=== PATIENT | male | born 1955 | race Caucasian/White ===

== ENCOUNTER 2019-01-09 16:48 | Inpatient (IN) | payer MEDICARE ==
[~2019-01-09] VITALS: Ht 172.7 cm; Wt 110.3 kg
[2019-01-09] VITALS (194 sets, daily range): BP systolic 123; BP diastolic 72; PULSE 85; TEMP 97.6; O2SAT 80–100
[2019-01-09] MEDS ORDERED: ZOCOR 40MG40 MG PO (17:46)
[2019-01-09] MEDS ORDERED: LOTENSIN40 MG PO (17:46)
[2019-01-09] MEDS ORDERED: MIRAPEX 0.0.125 MG/T PO (17:47)
[2019-01-09] MEDS ORDERED: SINGULAIR 110 MG/TAB PO (17:47)
[2019-01-09] MEDS ORDERED: HYDRODIURIL50 MG PO (17:48)
[2019-01-09 17:50] LABS: INR 1.1 (0.8-3.0); PROTHROMBIN TIME 12.6 SECONDS (9.7-12.8)
[2019-01-09] MEDS ORDERED: MULTI VITAMINS1 TAB PO (17:56)
[2019-01-09] MEDS ORDERED: OMEGA-3 1000 MG1 CAP PO (17:57)
[2019-01-09] MEDS ORDERED: ASPIRIN 81M81 MG/TA2 PO (17:57)
[2019-01-09] MEDS ORDERED: PHARMASSURE ZIN50 MG PO (17:57)
[2019-01-09] MEDS ORDERED: GARLIC100 MG PO (17:57)
[2019-01-09 18:02] LABS: C-REACTIVE PROTEIN 5.8 mg/dL (0.0-0.9); MAGNESIUM 1.8 mg/dL (1.6-2.3)
[2019-01-09 19:51] LABS: ACETAMINOPHEN < 10 ug/mL (10-30)
--- NOTE | 2019-01-09 20:00 | NUR ---
Report received from Rian SOLITARIO in ED. Will call when room is ready.
[2019-01-09 20:01] LABS: BILIRUBIN,DIRECT 6.9 mg/dL (0.0-0.4); BILIRUBIN,TOTAL 9.2 mg/dL (0.0-1.0)
[2019-01-09 20:15] LABS: OSMOLALITY-SERUM 256 Osm/kg (275-300)
--- NOTE | 2019-01-09 20:35 | NUR ---
Pt arrived via wheelchair assisted by ED nurse and personal belongings. Pt has sweatpants under hospital gown at this time. Reports sleeping in sweatpants recently so agreed to allow pt to keep them on. Pt transfered and ambulated around room with no noted difficulties and with a steady gait although while pt was standing still pt was noted to have a slight hunch forward in posture.
[2019-01-09 21:21] LABS: TRICYCLIC ANTIDEPRESS URINE NEGATIVE
[2019-01-09 22:14] LABS: CALCIUM 8.8 mg/dL (8.4-10.2); CREATININE, serum 0.71 (0.66-1.25)
[2019-01-09 22:35] LABS: POTASSIUM 2.6 mmol/L (3.4-5.0)
[2019-01-09] MEDS ORDERED: ZYRTEC 10MG10 MG PO (23:59)
[2019-01-10] VITALS (1120 sets, daily range): BP systolic 104–125; BP diastolic 67–80; PULSE 66–86; TEMP 97.6–98.7; O2SAT 66–100
[2019-01-10] MEDS ORDERED: [UNRECOGNIZED DRUG - OTHER] PO (00:06)
--- NOTE | 2019-01-10 04:00 | NUR ---
Pt resting in between disturbances. Has been independent with standing at bedside for use of the urinal with no difficulties noted. Continues to be pleasant and cooperative with cares and conversation.
--- NOTE | 2019-01-10 07:00 | NUR ---
BEDSIDE REPORT RECEIVED FROM ALTAF RAMIREZ. PATIENT CURRENTLY SLEEPING
--- NOTE | 2019-01-10 07:25 | NUR ---
Report provided to Radhika SOLITARIO. Pt resting in bed with eyes closed at this time.
--- NOTE | 2019-01-10 07:27 | NUR ---
Pharmacy notified that pt has 5 home medication bottles ready for pepper picker in the ICU medication room. Pt has no family to take medications home.
[2019-01-10 07:57] LABS: BASO % 0.7 % (0.0-2.0); EOS % 0.7 % (0-4.0); GRAN # 1.7 (1.4-6.5); GRAN % 58.7 % (42.2-75.2); HEMATOCRIT 34.4 % (42.0-52.0); HEMOGLOBIN 12.5 g/dl (13.5-18.0); LYMPH # 0.6 (1.2-3.4); MEAN CELL VOLUME 98 fl (80.0-100.0); MEAN CORPUSCULAR HEMOGLOBIN 36 pg (27.0-31.0); MEAN CORPUSCULAR HGB CONC 36 g/dl (33.0-37.0); MEAN PLATELET VOLUME 10.9 fl (7.4-10.4); MONO # 0.5 (0.1-0.6); MONO % 18.6 % (1.7-9.3); PLATELET COUNT 118 K/mm3 (130-400); REDCELL DISTRIBUTION WIDTH-CV 13.2 % (11.5-14.5)
[2019-01-10 07:59] LABS: ALBUMIN 2.9 gm/dL (3.5-5.0); BILIRUBIN,TOTAL 7.8 mg/dL (0.0-1.0); CALCIUM 8.4 mg/dL (8.4-10.2); CREATININE, serum 0.69 (0.66-1.25); POTASSIUM 3.5 mmol/L (3.4-5.0); TOTAL PROTEIN 5.8 gm/dL (6.4-8.2)
--- NOTE | 2019-01-10 10:01 | NUR ---
Initial visit; Patient thanked Phlebotomy Technologist for looking in on him, offering to keep him in her prayers and listening. Phlebotomy Technologist will update his jew affiliation on Census per request.
--- NOTE | 2019-01-10 13:20 | NUR ---
SW and ZURDO student met with patient to discuss discharge planning. patient lives alone in [place]. He does not have much local support and says his brother and [place] [facility]. Patient reports he has depression and drinks around 3 beers a day due to the depression and a herniated disc. SW discussed patient going to [facility] for outpatient alcohol and MH treatment. He is agreeable for SW to make him an intake appointment. Patient does not have a DPOA but wanted to complete one. ZURDO and ZURDO student witnessed it and placed a copy in the chart. Patient given original and copies. He listed his brother and AFBIO. Patients PCP is Dr Mccrary and he obtains his medications from [facility]. ZURDO will make an appointment with [facility] and inform patient of time and date.
--- NOTE | 2019-01-10 14:00 | NUR ---
PATIENT EXPRESSES SEVERAL EMOTIONAL CONCERNS. WE TALK A LOT ABOUT UTILIZING COUNSELING SERVICES AFTER HE DISCHARGES. HE SEEMS VERY INTERESTED IN UTILIZING [facility] UPON DISCHARGE. EMOTIONAL SUPPORT GIVEN. WILL CONTINUE TO MONITOR.
--- NOTE | 2019-01-10 18:35 | NUR ---
PATIENT WILL TRANSFER TO ROOM 313
--- NOTE | 2019-01-10 19:25 | NUR ---
Patient taken to room 313, report given to Dejah prior to moving patient. Care turned over at this time.
--- NOTE | 2019-01-10 19:30 | NUR ---
Pt transferred from ICU up to room 313. Pt given call light, phone. Assessment completed- diminished lung sounds in bases, cough- tessalon perrles q6h. Denies pain. Abdominal sounds active all quadrants, pulses +3. Wounds to lateral feet- sees wound care, no dressings wearing socks. No further needs at this time.
[2019-01-11] VITALS (9 sets, daily range): BP systolic 108–133; BP diastolic 62–73; PULSE 66–73; TEMP 97.7–98.5
--- NOTE | 2019-01-11 | NUR ---
THIS NURSE RESUMED CARES AT THIS TIME. PT LAYING IN BED ASLEEP. NO ISSUES OR CONERNS NOTED AT THIS TIME
[2019-01-11 07:15] LABS: BASO % 0.9 % (0.0-2.0); EOS % 1.2 % (0-4.0); GRAN # 1.9 (1.4-6.5); GRAN % 55.4 % (42.2-75.2); HEMOGLOBIN 12.5 g/dl (13.5-18.0); LYMPH # 0.9 (1.2-3.4); MEAN CELL VOLUME 101 fl (80.0-100.0); MEAN CORPUSCULAR HEMOGLOBIN 35 pg (27.0-31.0); MEAN CORPUSCULAR HGB CONC 35 g/dl (33.0-37.0); MEAN PLATELET VOLUME 10.8 fl (7.4-10.4); MONO # 0.6 (0.1-0.6); MONO % 16.5 % (1.7-9.3); PLATELET COUNT 121 K/mm3 (130-400); RED BLOOD COUNT 3.55 M/mm3 (4.20-5.60); REDCELL DISTRIBUTION WIDTH-CV 13.7 % (11.5-14.5)
--- NOTE | 2019-01-11 07:18 | NUR ---
PT HAD UNEVENTFUL NOC. APPEARED TO HAVE SLEPT WELL. NO C/O PAIN OR NOTED N/V/D. VOICED CONERNS ABOUT DC'ING AND ASKED WHEN.
[2019-01-11 07:35] LABS: ALBUMIN 2.9 gm/dL (3.5-5.0); BILIRUBIN,TOTAL 6.3 mg/dL (0.0-1.0); CALCIUM 8.2 mg/dL (8.4-10.2); CREATININE, serum 0.61 (0.66-1.25); POTASSIUM 3.4 mmol/L (3.4-5.0); TOTAL PROTEIN 5.7 gm/dL (6.4-8.2)
[2019-01-11 08:58] LABS: INR 1.1 (0.8-3.0)
--- NOTE | 2019-01-11 09:34 | NUR ---
pt in bed with eyes open. Alert and oriented x4. Patient states pain is a zero on a 0-10 scale. Lungs clear to auscultation, bowel sounds present x all four quads. skin warm and dry. Patient using urinal voiding clear anna urine. pt has dark areas on side of feet bilateral from old injury. Primary nurse is Celeste. IV in left ac without signs of redness or inflammation.
[2019-01-11] MEDS ORDERED: FOLIC ACID 11 MG/TA1 PO (10:21)
[2019-01-11] MEDS ORDERED: THIAMINE 1100 MG/TAB PO (10:21)
[2019-01-11] MEDS ORDERED: CEFTIN500 MG PO (11:41)
--- NOTE | 2019-01-11 11:46 | NUR ---
Agree with students assessment of patient. Patient is A&O, independent in room. Can be tearful at times and easily consoled. Waiting on screen from [facility] for possible discharge home. Call light within reach. Will continue to montior
--- NOTE | 2019-01-11 13:11 | NUR ---
awake resting in bed, bedside shift report received from ALTAF Liao
--- NOTE | 2019-01-11 13:31 | NUR ---
Patient in bed in the dark waiting on [facility] to assess. VS WNL. Denies pain and discomfort. IV CDI. fluids infusing. No further needs expressed from patient. Call light within reach
--- NOTE | 2019-01-11 13:37 | NUR ---
Patient will be screened by [facility] before discharge. SW will follow up with [facility] screeners about recommendations.
--- NOTE | 2019-01-11 13:43 | NUR ---
Primary nurse were assisted with [id number] patient care by [facility] student Heidy Tilley and [facility] instructor Saundra Carver RN-.
--- NOTE | 2019-01-11 14:00 | NUR ---
[facility] screener in to visit with patient
--- NOTE | 2019-01-11 15:13 | NUR ---
ZURDO spoke with [facility]. She reports she will schedule a follow appoitment at their office.
--- NOTE | 2019-01-11 15:15 | NUR ---
screener has completed intake, Pavithra LEACH notified [facility] screener is OK for patient to go home, entered room and IV fluids stopped, full assessment completed, see shift assessment for further info
--- NOTE | 2019-01-11 16:30 | NUR ---
discharge instructions given to patient, verbalizes understanding
--- NOTE | 2019-01-11 16:40 | NUR ---
discharged ambulatory
== END 2019-01-11 16:40 | disposition home or self-care (01) | DRG 441 ==
LOC: COL.ER 16:48 → ICU 18:25 → MEDICAL 18:25 → ICU 18:26 → MEDICAL 01-10 19:53
PROVIDERS: Emergency Medicine; Hospitalist; Nurse Practitioner Family; Physician Assistant; ADMIT Hospitalist
DX: E80.6 Other disorders of bilirubin metabolism (principal); E43 Unspecified severe protein-calorie malnutrition; E87.1 Hypo-osmolality and hyponatremia; I10 Essential (primary) hypertension; Z66 Do not resuscitate; E78.5 Hyperlipidemia, unspecified; K70.0 Alcoholic fatty liver; E87.6 Hypokalemia; F32.9 Major depressive disorder, single episode, unspecified; F10.10 Alcohol abuse, uncomplicated; Y90.1 Blood alcohol level of 20-39 mg/100 ml; I73.9 Peripheral vascular disease, unspecified; J01.90 Acute sinusitis, unspecified; R79.89 Other specified abnormal findings of blood chemistry; D69.6 Thrombocytopenia, unspecified; Z68.35 Body mass index [BMI] 35.0-35.9, adult
CPT/HCPCS: 99223-AI; 99239; J1644; J3475; J7030

== ENCOUNTER → 2019-01-09 | Outpatient (CLI) | payer MEDICARE ==
[~2019-01-09] MED LIST: ASPIRIN 81M81 MG/TA2 PO; CEFTIN500 MG PO; FOLIC ACID 11 MG/TA1 PO; GARLIC100 MG PO; HYDRODIURIL50 MG PO; LOTENSIN40 MG PO; MIRAPEX 0.0.125 MG/T PO; MULTI VITAMINS1 TAB PO; OMEGA-3 1000 MG1 CAP PO; PHARMASSURE ZIN50 MG PO; SINGULAIR 110 MG/TAB PO; THIAMINE 1100 MG/TAB PO; ZOCOR 40MG40 MG PO; ZYRTEC 10MG10 MG PO; [UNRECOGNIZED DRUG - OTHER] PO
[2019-01-09 15:08] LABS: BASO % 0.6 % (0.0-2.0); EOS % 0.3 % (0-4.0); GRAN # 2.4 (1.4-6.5); GRAN % 73.1 % (42.2-75.2); HEMATOCRIT 39.4 % (42.0-52.0); HEMOGLOBIN 14.3 g/dl (13.5-18.0); LYMPH # 0.4 (1.2-3.4); MEAN CELL VOLUME 98 fl (80.0-100.0); MEAN CORPUSCULAR HEMOGLOBIN 35 pg (27.0-31.0); MEAN CORPUSCULAR HGB CONC 36 g/dl (33.0-37.0); MEAN PLATELET VOLUME 11.3 fl (7.4-10.4); MONO # 0.4 (0.1-0.6); MONO % 12.7 % (1.7-9.3); PLATELET COUNT 147 K/mm3 (130-400); RED BLOOD COUNT 4.04 M/mm3 (4.20-5.60)
[2019-01-09 15:14] LABS: HYALINE CAST >12 /lpf; MUCOUS Present /lpf; PH 6 (5-8); SQUAMOUS EPITHELIAL 0-2 /hpf; URINE APPEARANCE Clear; URINE BACTERIA None Seen /hpf; URINE BILIRUBIN Positive (NEGATIVE); URINE BLOOD Negative (NEGATIVE); URINE COLOR Amber; URINE GLUCOSE Negative (NEGATIVE); URINE KETONE Trace (NEGATIVE); URINE LEUKOCYTE ESTERASE Negative (NEGATIVE); URINE NITRATE Negative (NEGATIVE); URINE PROTEIN(semi-quant) Negative (NEGATIVE); URINE RBC None Seen /hpf; URINE UROBILINOGEN >=4.0 mg/dL (NEGATIVE)
[2019-01-09 15:17] LABS: ALBUMIN 3.7 gm/dL (3.5-5.0); CREATININE, serum 0.76 (0.66-1.25); TOTAL PROTEIN 7.1 gm/dL (6.4-8.2)
[2019-01-09 15:28] LABS: COLLECTION METHOD CLEAN CATCH
[2019-01-09 15:47] LABS: TSH w REFLEX 2.75 uIU/mL (0.465-4.680)
== END ==
LOC: ZCOL.LAB 14:40
PROVIDERS: Family Medicine
DX: E78.00 Pure hypercholesterolemia, unspecified (principal); R53.83 Other fatigue; R17 Unspecified jaundice; R82.998 Other abnormal findings in urine; Z87.898 Personal history of other specified conditions

== ENCOUNTER → 2019-01-15 | Outpatient (CLI) | payer MEDICARE ==
[2019-01-15 11:35] LABS: HEMATOCRIT 43.9 % (42.0-52.0); MEAN CELL VOLUME 103 fl (80.0-100.0); MEAN CORPUSCULAR HEMOGLOBIN 35 pg (27.0-31.0); MEAN CORPUSCULAR HGB CONC 34 g/dl (33.0-37.0); MEAN PLATELET VOLUME 10.9 fl (7.4-10.4); PLATELET COUNT 194 K/mm3 (130-400); RED BLOOD COUNT 4.28 M/mm3 (4.20-5.60); REDCELL DISTRIBUTION WIDTH-CV 14.6 % (11.5-14.5)
[2019-01-15 11:47] LABS: ALBUMIN 3.8 gm/dL (3.5-5.0); BILIRUBIN,TOTAL 6.1 mg/dL (0.0-1.0); CALCIUM 9.5 mg/dL (8.4-10.2); CREATININE, serum 0.65 (0.66-1.25); TOTAL PROTEIN 7.3 gm/dL (6.4-8.2)
== END ==
LOC: COL.LAB 11:01
PROVIDERS: Hospitalist
DX: D69.6 Thrombocytopenia, unspecified (principal); R74.8 Abnormal levels of other serum enzymes

== ENCOUNTER → 2019-02-15 | Outpatient (CLI) | payer MEDICARE ==
[2019-02-15 13:47] LABS: BASO % 0.8 % (0.0-2.0); GRAN # 2.1 (1.4-6.5); GRAN % 55.3 % (42.2-75.2); HEMATOCRIT 48.1 % (42.0-52.0); HEMOGLOBIN 16.4 g/dl (13.5-18.0); LYMPH # 1.2 (1.2-3.4); LYMPH % 30.6 % (20.0-51.0); MEAN CELL VOLUME 101 fl (80.0-100.0); MEAN CORPUSCULAR HEMOGLOBIN 35 pg (27.0-31.0); MEAN CORPUSCULAR HGB CONC 34 g/dl (33.0-37.0); MEAN PLATELET VOLUME 11.3 fl (7.4-10.4); MONO # 0.5 (0.1-0.6); PLATELET COUNT 156 K/mm3 (130-400); RED BLOOD COUNT 4.76 M/mm3 (4.20-5.60); REDCELL DISTRIBUTION WIDTH-CV 13.2 % (11.5-14.5)
[2019-02-15 13:50] LABS: INR 1.1 (0.8-3.0)
[2019-02-15 14:00] LABS: ALBUMIN 3.9 gm/dL (3.5-5.0); BILIRUBIN,TOTAL 1.8 mg/dL (0.0-1.0); CALCIUM 9.8 mg/dL (8.4-10.2); CREATININE, serum 0.68 (0.66-1.25); POTASSIUM 4.2 mmol/L (3.4-5.0); TOTAL PROTEIN 7.3 gm/dL (6.4-8.2)
== END ==
LOC: COL.LAB 12:44
PROVIDERS: Physician Assistant
DX: K76.0 Fatty (change of) liver, not elsewhere classified (principal)

== ENCOUNTER → 2019-03-21 | Outpatient (CLI) | payer MEDICARE ==
[2019-03-21 18:28] LABS: ALBUMIN 4.1 gm/dL (3.5-5.0); CALCIUM 9.7 mg/dL (8.4-10.2); CREATININE, serum 0.6 (0.66-1.25); POTASSIUM 3.9 mmol/L (3.4-5.0); TOTAL PROTEIN 7.3 gm/dL (6.4-8.2)
== END ==
LOC: ZCOL.LAB 16:55
PROVIDERS: Family Medicine
DX: F10.10 Alcohol abuse, uncomplicated (principal); R74.8 Abnormal levels of other serum enzymes

== ENCOUNTER → 2019-05-07 | Outpatient (CLI) | payer MEDICARE ==
[2019-05-07 09:53] LABS: BASO % 1.1 % (0.0-2.0); EOS % 0.9 % (0-4.0); GRAN # 2.2 (1.4-6.5); GRAN % 62.1 % (42.2-75.2); HEMATOCRIT 50.5 % (42.0-52.0); LYMPH # 0.9 (1.2-3.4); LYMPH % 25.6 % (20.0-51.0); MEAN CELL VOLUME 96 fl (80.0-100.0); MEAN CORPUSCULAR HEMOGLOBIN 32 pg (27.0-31.0); MEAN CORPUSCULAR HGB CONC 34 g/dl (33.0-37.0); MEAN PLATELET VOLUME 11.4 fl (7.4-10.4); MONO # 0.4 (0.1-0.6); MONO % 10.3 % (1.7-9.3); PLATELET COUNT 137 K/mm3 (130-400); RED BLOOD COUNT 5.27 M/mm3 (4.20-5.60); REDCELL DISTRIBUTION WIDTH-CV 13.2 % (11.5-14.5)
[2019-05-07 10:06] LABS: PROTHROMBIN TIME 11.2 SECONDS (9.7-12.8)
[2019-05-07 10:10] LABS: BILIRUBIN,TOTAL 0.8 mg/dL (0.0-1.0); CALCIUM 9.4 mg/dL (8.4-10.2); CREATININE, serum 0.61 (0.66-1.25); POTASSIUM 4.1 mmol/L (3.4-5.0); TOTAL PROTEIN 7.1 gm/dL (6.4-8.2)
== END ==
LOC: COL.LAB 09:06
PROVIDERS: Family Medicine
DX: K76.0 Fatty (change of) liver, not elsewhere classified (principal)

== ENCOUNTER → 2019-08-20 | Outpatient (CLI) | payer MEDICARE ==
[2019-08-20 09:17] LABS: BASO % 0.8 % (0.0-2.0); EOS # 0.1 (0.0-0.7); GRAN # 4.1 (1.4-6.5); GRAN % 81.8 % (42.2-75.2); HEMATOCRIT 46.9 % (42.0-52.0); HEMOGLOBIN 15.6 g/dl (13.5-18.0); LYMPH # 0.5 (1.2-3.4); LYMPH % 9.6 % (20.0-51.0); MEAN CELL VOLUME 95 fl (80.0-100.0); MEAN CORPUSCULAR HEMOGLOBIN 32 pg (27.0-31.0); MEAN CORPUSCULAR HGB CONC 33 g/dl (33.0-37.0); MEAN PLATELET VOLUME 10.4 fl (7.4-10.4); MONO # 0.3 (0.1-0.6); MONO % 6.6 % (1.7-9.3); PLATELET COUNT 108 K/mm3 (130-400); RED BLOOD COUNT 4.95 M/mm3 (4.20-5.60); REDCELL DISTRIBUTION WIDTH-CV 13.2 % (11.5-14.5)
[2019-08-20 09:30] LABS: ALBUMIN 4.1 gm/dL (3.5-5.0); BILIRUBIN,TOTAL 0.8 mg/dL (0.0-1.0); CALCIUM 9.1 mg/dL (8.4-10.2); CREATININE, serum 0.67 (0.66-1.25); POTASSIUM 4.1 mmol/L (3.4-5.0)
== END ==
LOC: COL.LAB 08:57
PROVIDERS: Family Medicine
DX: F10.10 Alcohol abuse, uncomplicated (principal); F32.9 Major depressive disorder, single episode, unspecified

== ENCOUNTER → 2020-09-22 | Outpatient (CLI) | payer MEDICARE ==
[2020-09-22 10:12] LABS: CHOLESTEROL RISK RATIO 4.2
== END ==
LOC: COL.LAB 09:15
PROVIDERS: Family Medicine
DX: E78.2 Mixed hyperlipidemia (principal)